=== PATIENT | male | born 1990 | race Caucasian/White ===

== ENCOUNTER 2018-10-23 11:24 | Emergency (ER) | payer SELFPAY, MEDICAID ==
[2018-10-23] MEDS: FAMOTIDINE 20 MG TAB PO (13:19)
[2018-10-23] MEDS: ONDANSETRON (ODT) 4 MG TAB ODT (13:19)
[2018-10-23] MEDS: ACETAMINOPHEN 325 MG TAB PO (13:20)
[2018-10-23 13:31] LABS: ADD UMIC YES; UR ASCORBIC ACID NEGATIVE (NEGATIVE); UR BACTERIA FEW /HPF (NONE SEEN); UR BILIRUBIN (Dip) NEGATIVE (NEGATIVE); UR BLOOD (Dip) NEGATIVE (NEGATIVE); UR CLARITY CLOUDY (CLEAR); UR COLOR AMBER (YELLOW); UR GLUCOSE (Dip) NEGATIVE (NEGATIVE); UR KETONES (Dip) NEGATIVE (NEGATIVE); UR LEUKOCYTE ESTERASE (Dip) NEGATIVE Leu/ul (NEGATIVE); UR MUCUS MANY /HPF (NONE SEEN); UR NITRITE (Dip) NEGATIVE (NEGATIVE); UR RBC 1 /HPF (0-5); UR SPECIFIC GRAVITY (Dip) 1.029 (1.003-1.030); UR TOTAL PROTEIN (Dip) 2+ mg/dl (NEGATIVE); UR UROBILINOGEN (Dip) NEGATIVE (NEGATIVE); UR WBC 14 /HPF (0-5)
== END 2018-10-23 16:32 | disposition home or self-care (01) ==
LOC: FTE 16:32
DX: K52.9 Noninfective gastroenteritis and colitis, unspecified (principal); F17.210 Nicotine dependence, cigarettes, uncomplicated
CPT/HCPCS: 81001; 99283

== ENCOUNTER 2019-02-27 09:54 | Emergency (ER) | payer OTHER ==
[2019-02-27] MEDS: IBUPROFEN 600 MG TAB PO (10:09)
== END 2019-02-27 10:33 | disposition home or self-care (01) ==
LOC: E/R 09:54
DX: R07.89 Other chest pain (principal); F17.210 Nicotine dependence, cigarettes, uncomplicated; Y04.8XXA Assault by other bodily force, initial encounter
CPT/HCPCS: 93005; 99283-25